=== PATIENT | male | born 1965 | race Caucasian/White ===

== ENCOUNTER 2020-09-22 15:50 | Inpatient (IN) ==
[2020-09-22] MEDS ORDERED: ONDANSETRON 4 MG/2 ML VIAL IV PRN (20:01)
[2020-09-22] MEDS ORDERED: GLUCAGON 1 MG VIAL IM PRN (20:01)
[2020-09-22] MEDS ORDERED: hydrALAZINE 20 MG/1 ML VIAL IV PRN (20:01)
[2020-09-22] MEDS ORDERED: DOCUSATE SODIUM 100 MG CAPSULE PO PRN (20:01)
[2020-09-22] MEDS ORDERED: NICOTINE 21 MG/24 HR PATCH TRANSDERM PRN (20:01)
[2020-09-22] MEDS ORDERED: DEXTROSE 50% 25 GM/50 ML VIAL IV PRN (20:01)
[2020-09-22] MEDS: SODIUM CHLORIDE 0.45% 1,000 ML IV SCH (20:30)
[2020-09-22] MEDS ORDERED: ENOXAPARIN 40 MG/0.4 ML SYRINGE SUBCUT SCH (20:30)
[2020-09-22 20:43] LABS: Hematocrit 42.1 VOL% (42.0-52.0); Hemoglobin 13.2 GM/DL (14.0-18.0); Lymphocytes # 0.7 10*3/uL (1.4-4.0); Lymphocytes % 7.4 % (21.2-54.2); Mean Corpuscular HGB Conc 31.4 GM/DL (32-36); Mean Corpuscular Volume 96.3 FL (87-102); Mean Platelet Volume 10.5 FL (9.6-12.0); Neutrophils % 89.6 % (38.7-73.9); Platelet Count 254 T/CUMM (130-400); Red Blood Count 4.37 MC/CUMM (3.8-5.5); Red Cell Distribution Width 12.5 % (9.3-17.3); White Blood Count 9.9 T/CUMM (4-12)
[2020-09-22] MEDS: ACETAMINOPHEN 325 MG TABLET PO PRN (20:46)
[2020-09-22 21:19] LABS: Albumin 2.5 G/DL (3.4-5.0); Bilirubin,Total 0.6 MG/DL (0.2-1.0); Calcium 8.6 MG/DL (8.5-10.1); Osmolality,Calculated 267.4 MOS/KG (273-304); Potassium 5.9 MMOL/L (3.5-5.1); Total Protein 7.1 G/DL (6.4-8.2)
[2020-09-22] MEDS ORDERED: RIVAROXABAN 15 MG TABLET PO ONE (21:30)
[2020-09-22] MEDS ORDERED: CETIRIZINE 10 MG TABLET PO PRN (21:37)
[2020-09-22] MEDS: LEVOFLOXACIN INJ 750 MG/150 ML PREMIX IV SCH (22:00)
[2020-09-22] MEDS ORDERED: REMDESIVIR 200 MG in SODIUM CHLORIDE 0.9% 210 ML IV ONE (22:00)
[2020-09-22] MEDS: DEXAMETHASONE 10 MG/1 ML VIAL IV SCH (22:01)
[2020-09-22] MEDS: ZALEPLON 5 MG CAPSULE PO PRN (22:19)
[2020-09-22] MEDS: IBUPROFEN 600 MG TABLET PO PRN (22:19)
[2020-09-23] MEDS: ACETAMINOPHEN 325 MG TABLET PO PRN ×3 (00:16→13:16)
[2020-09-23 05:17] LABS: Ferritin 471.7 ng/ml (26-388)
[2020-09-23] MEDS: IBUPROFEN 600 MG TABLET PO PRN (05:37)
[2020-09-23] MEDS: CHOLECALCIFEROL 5,000 UNIT TABLET PO SCH (08:15)
[2020-09-23] MEDS: PANTOPRAZOLE 40 MG TABLET PO SCH (08:15)
[2020-09-23] MEDS: ASCORBIC ACID 500 MG TABLET PO SCH ×2 (08:15→21:07)
[2020-09-23] MEDS: CYPROHEPTADINE 4 MG TABLET PO SCH ×3 (08:15→21:07)
[2020-09-23] MEDS: ZINC GLUCONATE 50 MG TABLET PO SCH (08:15)
[2020-09-23] MEDS: DEXAMETHASONE 10 MG/1 ML VIAL IV SCH (08:16)
[2020-09-23] MEDS ORDERED: DEXAMETHASONE 10 MG/1 ML VIAL IV SCH (09:00)
[2020-09-23] MEDS ORDERED: CHOLECALCIFEROL 1,000 UNIT TABLET PO SCH (09:00)
[2020-09-23 11:12] LABS: Basophils % 0.1 % (0.0-0.8); Hematocrit 40.7 VOL% (42.0-52.0); Hemoglobin 12.9 GM/DL (14.0-18.0); Immature Granulocytes % 0.7 %; Immature Granulocytes Absolute 0.08 #; Lymphocytes # 0.8 10*3/uL (1.4-4.0); Lymphocytes % 6.9 % (21.2-54.2); Mean Corpuscular HGB Conc 31.7 GM/DL (32-36); Mean Corpuscular Volume 93.8 FL (87-102); Mean Platelet Volume 10.6 FL (9.6-12.0); Monocytes % 2.2 % (1.7-12.7); Neutrophils % 90.1 % (38.7-73.9); Platelet Count 263 T/CUMM (130-400); Red Blood Count 4.34 MC/CUMM (3.8-5.5); Red Cell Distribution Width 12.3 % (9.3-17.3)
[2020-09-23 11:40] LABS: Calcium 8.5 MG/DL (8.5-10.1); Osmolality,Calculated 281.5 MOS/KG (273-304); Potassium 4.2 MMOL/L (3.5-5.1); Thyroid Stimulating Hormone 0.177 uIU/ml (0.358-3.74)
[2020-09-23] MEDS: SODIUM CHLORIDE 0.45% 1,000 ML IV SCH (13:17)
[2020-09-23] MEDS: RIVAROXABAN 15 MG TABLET PO SCH (16:45)
[2020-09-23] MEDS ORDERED: rOPINIRole 0.25 MG TABLET PO SCH (21:00)
[2020-09-23] MEDS: REMDESIVIR 100 MG in SODIUM CHLORIDE 0.9% 100 ML IV SCH (21:07)
[2020-09-23] MEDS: LEVOFLOXACIN INJ 750 MG/150 ML PREMIX IV SCH (21:07)
[2020-09-23] MEDS: rOPINIRole 0.25 MG TABLET PO PRN (21:07)
[2020-09-23] MEDS: ZALEPLON 5 MG CAPSULE PO PRN (21:08)
[2020-09-24 04:13] LABS: Basophils % 0.2 % (0.0-0.8); Hematocrit 43.6 VOL% (42.0-52.0); Immature Granulocytes % 0.9 %; Immature Granulocytes Absolute 0.11 #; Lymphocytes # 0.8 10*3/uL (1.4-4.0); Lymphocytes % 6.7 % (21.2-54.2); Mean Corpuscular HGB Conc 32.1 GM/DL (32-36); Mean Corpuscular Volume 94.8 FL (87-102); Monocytes % 3.1 % (1.7-12.7); NRBC # 0.03 10*3/uL; Neutrophils % 89.1 % (38.7-73.9); Platelet Count 190 T/CUMM (130-400); Red Cell Distribution Width 12.4 % (9.3-17.3); White Blood Count 11.9 T/CUMM (4-12)
[2020-09-24 04:57] LABS: Calcium 8.7 MG/DL (8.5-10.1); Osmolality,Calculated 280.4 MOS/KG (273-304); Potassium 4.5 MMOL/L (3.5-5.1)
[2020-09-24] MEDS: SODIUM CHLORIDE 0.45% 1,000 ML IV SCH (07:28)
[2020-09-24] MEDS ORDERED: ERGOCALCIFEROL 50,000 UNIT CAPSULE PO ONE (08:05)
[2020-09-24] MEDS: CYPROHEPTADINE 4 MG TABLET PO SCH ×3 (08:32→20:21)
[2020-09-24] MEDS: DEXAMETHASONE 10 MG/1 ML VIAL IV SCH (08:32)
[2020-09-24] MEDS: ZINC GLUCONATE 50 MG TABLET PO SCH (08:32)
[2020-09-24] MEDS: ASCORBIC ACID 500 MG TABLET PO SCH ×2 (08:32→20:21)
[2020-09-24] MEDS: ACETAMINOPHEN 325 MG TABLET PO PRN (08:32)
[2020-09-24] MEDS: CHOLECALCIFEROL 5,000 UNIT TABLET PO SCH (08:32)
[2020-09-24] MEDS: PANTOPRAZOLE 40 MG TABLET PO SCH (08:32)
[2020-09-24] MEDS: busPIRone 5 MG TABLET PO SCH ×2 (12:28→20:21)
[2020-09-24] MEDS: RIVAROXABAN 15 MG TABLET PO SCH (17:20)
[2020-09-24] MEDS: rOPINIRole 0.25 MG TABLET PO PRN (20:22)
[2020-09-24] MEDS: traZODone 50 MG TABLET PO PRN (20:22)
[2020-09-24] MEDS: LEVOFLOXACIN INJ 750 MG/150 ML PREMIX IV SCH (21:45)
[2020-09-24] MEDS: REMDESIVIR 100 MG in SODIUM CHLORIDE 0.9% 100 ML IV SCH (21:45)
[2020-09-25] MEDS: SODIUM CHLORIDE 0.45% 1,000 ML IV SCH (00:30)
[2020-09-25 05:02] LABS: Basophils % 0.1 % (0.0-0.8); Eosinophils % 0.1 % (0.00-10.9); Hematocrit 42.1 VOL% (42.0-52.0); Hemoglobin 12.8 GM/DL (14.0-18.0); Immature Granulocytes % 1.3 %; Immature Granulocytes Absolute 0.09 #; Lymphocytes # 1.7 10*3/uL (1.4-4.0); Lymphocytes % 24.4 % (21.2-54.2); Mean Corpuscular HGB Conc 30.4 GM/DL (32-36); Mean Platelet Volume 11.3 FL (9.6-12.0); Neutrophils % 68.1 % (38.7-73.9); Platelet Count 204 T/CUMM (130-400); Red Blood Count 4.34 MC/CUMM (3.8-5.5); Red Cell Distribution Width 12.5 % (9.3-17.3)
[2020-09-25 05:23] LABS: Platelet Estimate Normal
[2020-09-25 05:24] LABS: Anisocytosis Slight; Spherocytes 2+
[2020-09-25 05:52] LABS: Albumin 2.1 G/DL (3.4-5.0); Bilirubin,Total 0.4 MG/DL (0.2-1.0); Calcium 8.3 MG/DL (8.5-10.1); Osmolality,Calculated 277.5 MOS/KG (273-304); Potassium 4.4 MMOL/L (3.5-5.1); Total Protein 6.3 G/DL (6.4-8.2)
[2020-09-25 06:10] LABS: Ferritin 521.6 ng/ml (26-388)
[2020-09-25] MEDS: CHOLECALCIFEROL 5,000 UNIT TABLET PO SCH (08:02)
[2020-09-25] MEDS: busPIRone 5 MG TABLET PO SCH ×2 (08:02→20:24)
[2020-09-25] MEDS: DEXAMETHASONE 10 MG/1 ML VIAL IV SCH (08:02)
[2020-09-25] MEDS: ZINC GLUCONATE 50 MG TABLET PO SCH (08:02)
[2020-09-25] MEDS: PANTOPRAZOLE 40 MG TABLET PO SCH (08:02)
[2020-09-25] MEDS: ASCORBIC ACID 500 MG TABLET PO SCH ×2 (08:02→20:24)
[2020-09-25] MEDS: CYPROHEPTADINE 4 MG TABLET PO SCH ×3 (08:02→20:24)
[2020-09-25] MEDS: DEXTROSE 5% NACL 0.45% 1,000 ML IV SCH ×2 (08:41→23:16)
[2020-09-25] MEDS: RIVAROXABAN 15 MG TABLET PO SCH (16:53)
[2020-09-25] MEDS: ZALEPLON 5 MG CAPSULE PO PRN (20:37)
[2020-09-25] MEDS: rOPINIRole 0.25 MG TABLET PO PRN (20:37)
[2020-09-25] MEDS: LEVOFLOXACIN INJ 750 MG/150 ML PREMIX IV SCH (21:41)
[2020-09-25] MEDS: REMDESIVIR 100 MG in SODIUM CHLORIDE 0.9% 100 ML IV SCH (23:16)
[2020-09-25] MEDS: traZODone 50 MG TABLET PO PRN (23:31)
[2020-09-26 05:44] LABS: Basophils % 0.2 % (0.0-0.8); Eosinophils % 0.1 % (0.00-10.9); Hematocrit 42.5 VOL% (42.0-52.0); Hemoglobin 13.9 GM/DL (14.0-18.0); Immature Granulocytes % 1.6 %; Immature Granulocytes Absolute 0.13 #; Lymphocytes % 12.7 % (21.2-54.2); Mean Corpuscular HGB Conc 32.7 GM/DL (32-36); Mean Corpuscular Volume 92.6 FL (87-102); Mean Platelet Volume 10.7 FL (9.6-12.0); Monocytes % 5.8 % (1.7-12.7); Neutrophils % 79.6 % (38.7-73.9); Platelet Count 301 T/CUMM (130-400); Red Blood Count 4.59 MC/CUMM (3.8-5.5); Red Cell Distribution Width 12.3 % (9.3-17.3); White Blood Count 8.1 T/CUMM (4-12)
[2020-09-26 06:16] LABS: Ferritin 480.9 ng/ml (26-388)
[2020-09-26 06:17] LABS: Anisocytosis Slight; Platelet Estimate Normal
[2020-09-26 06:42] LABS: Calcium 8.4 MG/DL (8.5-10.1); Osmolality,Calculated 283.3 MOS/KG (273-304); Potassium 4.4 MMOL/L (3.5-5.1)
[2020-09-26] MEDS: DEXAMETHASONE 10 MG/1 ML VIAL IV SCH (08:40)
[2020-09-26] MEDS: busPIRone 5 MG TABLET PO SCH ×2 (08:45→21:22)
[2020-09-26] MEDS: CYPROHEPTADINE 4 MG TABLET PO SCH ×3 (08:45→21:22)
[2020-09-26] MEDS: CHOLECALCIFEROL 5,000 UNIT TABLET PO SCH (08:46)
[2020-09-26] MEDS: ASCORBIC ACID 500 MG TABLET PO SCH ×2 (08:46→21:23)
[2020-09-26] MEDS: PANTOPRAZOLE 40 MG TABLET PO SCH (08:46)
[2020-09-26] MEDS: ZINC GLUCONATE 50 MG TABLET PO SCH (08:46)
[2020-09-26] MEDS: DEXTROSE 5% NACL 0.45% 1,000 ML IV SCH ×2 (12:18→14:30)
[2020-09-26] MEDS: RIVAROXABAN 15 MG TABLET PO SCH (16:51)
[2020-09-26] MEDS: rOPINIRole 0.25 MG TABLET PO PRN (21:22)
[2020-09-26] MEDS: BUDESONIDE/FORMOTEROL 160-4.5 INHALER 6 GM INH SCH (21:22)
[2020-09-26] MEDS: traZODone 50 MG TABLET PO PRN (21:23)
[2020-09-26] MEDS: LEVOFLOXACIN INJ 750 MG/150 ML PREMIX IV SCH (21:27)
[2020-09-26] MEDS: REMDESIVIR 100 MG in SODIUM CHLORIDE 0.9% 100 ML IV SCH (22:59)
[2020-09-26] MEDS: ZALEPLON 5 MG CAPSULE PO PRN (23:43)
[2020-09-27] MEDS: DEXTROSE 5% NACL 0.45% 1,000 ML IV SCH ×3 (06:15→20:59)
[2020-09-27 06:43] LABS: Basophils % 0.3 % (0.0-0.8); Eosinophils % 0.2 % (0.00-10.9); Hematocrit 41.9 VOL% (42.0-52.0); Hemoglobin 13.9 GM/DL (14.0-18.0); Immature Granulocytes % 2.3 %; Immature Granulocytes Absolute 0.25 #; Lymphocytes # 1.8 10*3/uL (1.4-4.0); Lymphocytes % 15.8 % (21.2-54.2); Mean Corpuscular HGB Conc 33.2 GM/DL (32-36); Mean Corpuscular Volume 91.7 FL (87-102); Mean Platelet Volume 10.7 FL (9.6-12.0); Monocytes % 5.3 % (1.7-12.7); Neutrophils % 76.1 % (38.7-73.9); Platelet Count 359 T/CUMM (130-400); Red Blood Count 4.57 MC/CUMM (3.8-5.5); Red Cell Distribution Width 12.3 % (9.3-17.3); White Blood Count 11.1 T/CUMM (4-12)
[2020-09-27 07:14] LABS: Calcium 8.3 MG/DL (8.5-10.1); Osmolality,Calculated 282.3 MOS/KG (273-304); Potassium 4.1 MMOL/L (3.5-5.1)
[2020-09-27 07:23] LABS: Ferritin 404.7 ng/ml (26-388)
[2020-09-27] MEDS: DEXAMETHASONE 10 MG/1 ML VIAL IV SCH (08:20)
[2020-09-27] MEDS: PANTOPRAZOLE 40 MG TABLET PO SCH (08:23)
[2020-09-27] MEDS: ASCORBIC ACID 500 MG TABLET PO SCH ×2 (08:23→22:06)
[2020-09-27] MEDS: CYPROHEPTADINE 4 MG TABLET PO SCH ×3 (08:23→22:05)
[2020-09-27] MEDS: busPIRone 5 MG TABLET PO SCH ×2 (08:23→22:06)
[2020-09-27] MEDS: BUDESONIDE/FORMOTEROL 160-4.5 INHALER 6 GM INH SCH ×2 (08:23→22:07)
[2020-09-27] MEDS: ZINC GLUCONATE 50 MG TABLET PO SCH (08:24)
[2020-09-27] MEDS: CHOLECALCIFEROL 5,000 UNIT TABLET PO SCH (08:24)
[2020-09-27] MEDS: RIVAROXABAN 15 MG TABLET PO SCH (16:22)
[2020-09-27 17:05] VITALS: BP 132/90
[2020-09-27] MEDS: ZALEPLON 5 MG CAPSULE PO PRN (22:06)
[2020-09-27] MEDS: traZODone 50 MG TABLET PO PRN (22:06)
[2020-09-27] MEDS: rOPINIRole 0.25 MG TABLET PO PRN (22:06)
[2020-09-28 05:41] LABS: Basophils % 0.3 % (0.0-0.8); Eosinophils % 0.2 % (0.00-10.9); Hemoglobin 13.8 GM/DL (14.0-18.0); Immature Granulocytes % 2.9 %; Immature Granulocytes Absolute 0.41 #; Lymphocytes # 2.4 10*3/uL (1.4-4.0); Lymphocytes % 16.8 % (21.2-54.2); Mean Corpuscular HGB Conc 32.9 GM/DL (32-36); Mean Corpuscular Volume 92.5 FL (87-102); Mean Platelet Volume 10.2 FL (9.6-12.0); Monocytes % 5.9 % (1.7-12.7); Neutrophils % 73.9 % (38.7-73.9); Platelet Count 357 T/CUMM (130-400); Red Blood Count 4.54 MC/CUMM (3.8-5.5); Red Cell Distribution Width 12.1 % (9.3-17.3); White Blood Count 14.3 T/CUMM (4-12)
[2020-09-28] MEDS: DEXTROSE 5% NACL 0.45% 1,000 ML IV SCH ×2 (05:43→10:40)
[2020-09-28 06:50] LABS: Calcium 8.5 MG/DL (8.5-10.1); Osmolality,Calculated 275.8 MOS/KG (273-304); Potassium 4.3 MMOL/L (3.5-5.1)
[2020-09-28 06:54] LABS: Ferritin 393.9 ng/ml (26-388)
[2020-09-28] MEDS: PANTOPRAZOLE 40 MG TABLET PO SCH (08:16)
[2020-09-28] MEDS: ZINC GLUCONATE 50 MG TABLET PO SCH (08:16)
[2020-09-28] MEDS: CHOLECALCIFEROL 5,000 UNIT TABLET PO SCH (08:16)
[2020-09-28] MEDS: ASCORBIC ACID 500 MG TABLET PO SCH ×2 (08:16→21:03)
[2020-09-28] MEDS: CYPROHEPTADINE 4 MG TABLET PO SCH ×3 (08:16→21:03)
[2020-09-28] MEDS: DEXAMETHASONE 10 MG/1 ML VIAL IV SCH (08:16)
[2020-09-28] MEDS: busPIRone 5 MG TABLET PO SCH ×2 (08:16→21:03)
[2020-09-28] MEDS: BUDESONIDE/FORMOTEROL 160-4.5 INHALER 6 GM INH SCH ×2 (08:23→21:04)
[2020-09-28] MEDS: RIVAROXABAN 15 MG TABLET PO SCH (16:40)
[2020-09-28] MEDS: traZODone 50 MG TABLET PO PRN (21:03)
[2020-09-28] MEDS: rOPINIRole 0.25 MG TABLET PO PRN (21:03)
[2020-09-28] MEDS: ZALEPLON 5 MG CAPSULE PO PRN (21:04)
[2020-09-29] MEDS: PANTOPRAZOLE 40 MG TABLET PO SCH (08:10)
[2020-09-29] MEDS: BUDESONIDE/FORMOTEROL 160-4.5 INHALER 6 GM INH SCH (08:10)
[2020-09-29] MEDS: ASCORBIC ACID 500 MG TABLET PO SCH (08:10)
[2020-09-29] MEDS: CYPROHEPTADINE 4 MG TABLET PO SCH (08:10)
[2020-09-29] MEDS: DEXAMETHASONE 10 MG/1 ML VIAL IV SCH (08:10)
[2020-09-29] MEDS: ZINC GLUCONATE 50 MG TABLET PO SCH (08:10)
[2020-09-29] MEDS: busPIRone 5 MG TABLET PO SCH (08:10)
[2020-09-29] MEDS: CHOLECALCIFEROL 5,000 UNIT TABLET PO SCH (08:10)
== END 2020-09-29 13:36 | disposition home or self-care (01) | DRG 177 ==
LOC: N.CC 19:56 → SUATTDRO 19:56
PROVIDERS: ADMIT Internal Medicine; ATTEND Emergency Medicine